=== PATIENT | female | born 1960 | race Caucasian/White ===

== ENCOUNTER 2022-11-16 16:53 | Emergency (ER) | payer SELFPAY ==
[~2022-11-16] VITALS: Ht 162.6 cm; Wt 81.8 kg
[2022-11-16 17:05] VITALS: BP 185/113
[2022-11-16 17:16] VITALS: BP 174/101
[2022-11-16 17:22] VITALS: BP 166/98
[2022-11-16] MEDS ORDERED: CEPHALEXIN500 MG PO (17:25)
[2022-11-16 17:30] VITALS: BP 159/89
[2022-11-16 17:45] VITALS: BP 148/99
[2022-11-16 18:00] VITALS: BP 148/99; BP 154/88
== END 2022-11-16 18:05 | disposition home or self-care (01) | DRG 605 ==
LOC: ED 16:53
DX: S61.412A Laceration without foreign body of left hand, initial encounter (principal); W26.0XXA Contact with knife, initial encounter

== ENCOUNTER 2023-07-18 17:32 | Emergency (ER) | payer MEDICARE, MEDICAID ==
[~2023-07-18] VITALS: Ht 162.6 cm; Wt 70.0 kg
[~2023-07-18 17:32] MED LIST: CEPHALEXIN500 MG PO
[2023-07-18] MEDS ORDERED: CYCLOBENZAPRINE10 MG PO (20:29)
[2023-07-18] MEDS ORDERED: NAPROXEN500 MG PO (20:29)
[2023-07-18] MEDS ORDERED: MEDDOSEPAK PO (20:29)
[2023-07-18 20:44] VITALS: BP 160/96
== END 2023-07-18 20:49 | disposition home or self-care (01) ==
LOC: ED 17:32
DX: M47.816 Spondylosis without myelopathy or radiculopathy, lumbar region (principal); M54.42 Lumbago with sciatica, left side; M54.41 Lumbago with sciatica, right side; I10 Essential (primary) hypertension; F17.210 Nicotine dependence, cigarettes, uncomplicated

== ENCOUNTER 2024-07-07 13:13 | Emergency (ER) | payer MEDICARE ==
[~2024-07-07] VITALS: Ht 162.6 cm; Wt 74.0 kg
[2024-07-07] VITALS (8 sets, daily range): BP systolic 148–189; BP diastolic 86–109
[~2024-07-07 13:13] MED LIST changes: +CYCLOBENZAPRINE10 MG PO; +LISINOPRIL5 MG PO; +LORTAB 5/3255 MG PO; +MEDDOSEPAK PO; +METHOCARBAMOL500 MG PO; +NAPROXEN500 MG PO; +PREDNISONE10 MG PO
[2024-07-07] MEDS ORDERED: HYDROCO/APAP1 TA9 PO (14:24)
[2024-07-07] MEDS ORDERED: IBUPROFEN600 MG PO (14:24)
[2024-07-07] MEDS ORDERED: METHOCARBAMOL500 MG PO (14:24)
[2024-07-07] MEDS ORDERED: PREDNISONE50 MG PO (14:24)
[2024-07-07] MEDS ORDERED: METHOCARBAMOL 500 MG/TAB PO ONE (14:25)
[2024-07-07] MEDS ORDERED: HYDROcodone 5 MG/Acetaminophen 325 MG/COMBO PO ONE (14:25)
[2024-07-07] MEDS ORDERED: predniSONE 20 MG/TAB PO ONE (14:25)
== END 2024-07-07 15:11 | disposition home or self-care (01) ==
LOC: ED 13:13
DX: M54.50 Low back pain, unspecified (principal); G89.29 Other chronic pain; I10 Essential (primary) hypertension

== ENCOUNTER 2024-07-09 13:29 | Emergency (ER) | payer MEDICARE ==
[~2024-07-09] VITALS: Ht 162.6 cm; Wt 74.8 kg
[2024-07-09] VITALS (14 sets, daily range): BP systolic 120–154; BP diastolic 69–90
[~2024-07-09 13:29] MED LIST changes: +HYDROCO/APAP1 TA9 PO; +IBUPROFEN600 MG PO; +PREDNISONE50 MG PO
[2024-07-09 13:54] LABS: BASO% 0.5 % (0-3); EOS% 3.5 % (0-8); HEMATOCRIT 40.2 % (37.0-47.0); HEMOGLOBIN 13.2 g/dl (12.0-16.0); IMMATURE GRANULOCYTES 0.2 % (0.0-5.0); LYMPH% 46.9 % (15-41); MEAN CELL VOLUME 93.1 fL CALC (80.0-100.0); MEAN CORPUSCULAR HGB 30.6 pG CALC (26.0-32.0); MEAN CORPUSCULAR HGB CONC 32.8 g/dL CAL (32.0-36.0); MONO% 8.3 % (2-13); NEUT# 3.39 thou/uL (2.00-7.15); NEUT% 40.6 % (42-76); RED BLOOD COUNT 4.32 mill/uL (4.20-5.60); RED CELL DISTRI WIDTH 13.5 % (11.5-15.5)
[2024-07-09] MEDS ORDERED: MORPHINE SULFATE 4 MG/ML VIAL IV ONE (14:05)
[2024-07-09] MEDS ORDERED: ONDANSETRON HCl 4 MG/2 ML SDV IV ONE (14:05)
[2024-07-09 14:14] LABS: ALBUMIN 4.1 g/dL (3.2-5.0); BILIRUBIN, TOTAL 0.3 mg/dL (0.02-1.3); CREATININE 1.1 mg/dL (0.5-1.0); POTASSIUM 3.9 mmol/l (3.5-5.1); TOTAL PROTEIN 6.7 g/dL (6.3-8.2)
[2024-07-09] MEDS ORDERED: LORazepam 1 MG/TAB PO ONE (14:40)
[2024-07-09] MEDS ORDERED: LISINOPRIL20 M1 PO (16:02)
[2024-07-09] MEDS ORDERED: HYDROCHLOROT12.5 M1 PO (16:02)
== END 2024-07-09 16:33 | disposition home or self-care (01) ==
LOC: ED 13:29
PROVIDERS: Family Medicine
DX: R51.9 Headache, unspecified (principal); M54.9 Dorsalgia, unspecified; I10 Essential (primary) hypertension; Z72.0 Tobacco use